=== PATIENT | female | born 1995 | race African-American/Black ===

== ENCOUNTER → 2019-09-02 15:54 | Outpatient (CLI) | payer OTHER, SELFPAY ==
--- NOTE | ~2019-09-02 | US_ITS ---
EXAMINATION: US OB transvaginal DATE: 09/02/2019 16:17 INDICATION: Follow-up pole. Evaluate viability. TECHNIQUE: Real-time transvaginal obstetric ultrasound. FINDINGS: Comparison ultrasound dated 08/26/2019 The uterus measures 10.3 x 5.9 x 7.1 cm. There is an intrauterine gestational sac, with pole id entified. The crown rump length measures 0.7 cm, which correlates with a estimated gestational age o f 6 weeks 2 days. heart tones are identified measuring 133 BPM. There is a 4.1 cm corpus lute al cyst of the right ovary. Left ovary not visualized. Small amount of free fluid in the pelvis. IMPRESSION: 1. SL IUP with an EGA of 6 weeks, 4 days (EDC by current ultrasound of 04/23/2020). 2: 4.1 cm corpus luteal cyst of the right ovary. Reviewed, dictated and finalized at location A. ATRIC SPEECH THERAPIST IMPRESSION: 1. SL IUP with an EGA of 6 weeks, 4 days (EDC by current ultrasound of 0). 2: 4.1 cm corpus luteal cyst of the right ovary.
== END ==
PROVIDERS: Visit Provider Obstetrics & Gynecology
DX: O36.80X0 Pregnancy with inconclusive fetal viability, not applicable or unspecified (principal); N83.201 Unspecified ovarian cyst, right side; Z3A.01 Less than 8 weeks gestation of pregnancy
CPT/HCPCS: 76817

== ENCOUNTER 2019-11-21 10:58 | Outpatient (CLI) | payer OTHER, SELFPAY ==
--- NOTE | ~2019-11-21 | US_ITS ---
EXAMINATION: US OB /maternal detail DATE: 11/21/2019 11:55 INDICATION: Second trimester anatomic survey TECHNIQUE: Real-time ultrasound of the pelvis was performed. COMPARISON: None. FINDINGS: There is a single living fetus in vertex presentation. The placenta is anterior. heart rate is 159 beats per minute (bpm). cardiac activity and movement are noted. The amniotic fluid index is subjectively normal. The four chamber heart is not well demonstrated. The following anatomy was identified as normal : 3 vessel cord cord insertion kidneys urinary bladder stomach spine diaphragm ventricles cisterna magna cerebellum The following biometric data were obtained: Biparietal diameter (BPD): 4.1 cm; head circumference (HC): 15.7 cm; abdominal circumference (AC): 12 .7 cm; femur length (FL): 2.6 cm. These measurements are concordant. Estimated weight is 231 g +/- 34 g, which correlates with the 62nd percentile when 04/23/2020 is used as estimated date of delivery. As single measurements, these parameters are each equal to the following estimated gestational ages w ith ranges of +/- 2 standard deviations: BPD: 18 weeks 4 days +/- 1 weeks 5 days. HC: 18 weeks 5 days +/- 1 weeks 3 days. AC: 18 weeks 2 days +/- 2 weeks 0 days. FL: 18 weeks 0 days +/- 1 weeks 3 days. estimated gestational age based solely on measurements from this exam is 18 weeks 3 days +/- 1 weeks 2 days. IMPRESSION: 1. Single living fetus in vertex presentation. 2. Estimated weight is 231 g +/- 34 g, which correlates with the 62nd percentile when 04/23/2020 is used as estimated date of delivery. 3. Four chamber heart not well demonstrated. Reviewed, dictated and finalized at location A. IMPRESSION: 1. Single living fetus in vertex presentation. 2. Estimated weight is 231 g +/- 34 g, which correlates with the 62nd per centile when 04/23/2020 is used as estimated date of delivery. 3. Four chamber heart not well demonstrated.
== END 2019-11-21 10:59 | disposition home or self-care (01) ==
LOC: ANHIMG 11:06
PROVIDERS: Visit Provider Obstetrics & Gynecology
DX: Z34.00 Encounter for supervision of normal first pregnancy, unspecified trimester (principal)
CPT/HCPCS: 76805

== ENCOUNTER 2019-11-27 10:00 | Outpatient (CLI) | payer OTHER, SELFPAY ==
--- NOTE | ~2019-11-27 | US_ITS ---
EXAMINATION: US OB limited DATE: 11/27/2019 10:37 INDICATION: Nonvisualized cardiac anatomy on prior survey during second trimester . TECHNIQUE: Real-time ultrasound of the pelvis was performed. The interpreting radiologist was not pre sent for the study. COMPARISON: 11/21/2019 FINDINGS: There is a single living fetus in transverse lie with vertex to maternal right. The placenta is ante rior with caudal margin 3.6 cm from the internal cervical os. Normal cervical length of 4.1 cm. heart rate is 152 beats per minute (bpm). The amniotic fluid is subjectively normal. Normal he art. IMPRESSION: 1. Single living fetus in vertex presentation with heart rate of 152 bpm. 2. Normal heart. Reviewed, dictated and finalized at location A. IMPRESSION: 1. Single living fetus in vertex presentation with heart rate of 152 bpm . 2. Normal heart.
== END 2019-11-27 10:01 | disposition home or self-care (01) ==
LOC: ANHIMG 10:07
PROVIDERS: Visit Provider Obstetrics & Gynecology
DX: Z36.2 Encounter for other antenatal screening follow-up (principal)
CPT/HCPCS: 76815

== ENCOUNTER 2020-04-17 22:55 | Observation (INO) | payer OTHER, SELFPAY ==
--- NOTE | 2020-04-17 22:55 | OBADM ---
This patient, Yojana Francois, admitted to the OB room Labor/Delivery/Recovery 106 for observation. Patient/family oriented to hospital policies and general routines including ID bracelet, bed and alarms, visiting hours, pain management, procedures, bathroom and other care routines, personal items, smoking policy, room service/diet, and visiting hours. Patient/Family are encouraged to report perceived risks to care and to ask questions if they do not understand what they are told or what they should do.
[2020-04-17 23:09] VITALS: RESP 16
[2020-04-17 23:17] VITALS: TEMP 36.4
--- NOTE | 2020-05-04 09:56 | PM.OBTRLD ---
OB - Triage/Final Diagnosis Final Diagnosis (1) False labor: Code(s): O47.9 - False labor, unspecified Status: Acute
== END 2020-04-18 00:39 | disposition home or self-care (01) ==
PROVIDERS: Admitting Provider Obstetrics & Gynecology Gynecology; Visit Provider Obstetrics & Gynecology Gynecology
DX: O47.9 False labor, unspecified (principal); Z3A.00 Weeks of gestation of pregnancy not specified
CPT/HCPCS: G0378; G0379

== ENCOUNTER 2020-04-18 19:55 | Inpatient (IN) | payer OTHER, SELFPAY ==
[2020-04-18] VITALS (29 sets, daily range): BP systolic 72–149; BP diastolic 26–112; PULSE 82–221; TEMP 36.3–37.3; O2SAT 100; BMI 28.4
[2020-04-18] MEDS: LACTATED RINGERS 1,000 ML 125 ML IV CONT ×2 (20:16→21:17)
[2020-04-18 20:36] LABS: Basophils Percent Auto 0.3 % (0.2-1.2); Eosinophils Absolute Auto 0.1 K/mm3 (0-0.3); Eosinophils Percent Auto 0.6 % (0-4.4); Hematocrit 38.9 % (37.0-47.0); Hemoglobin 12.8 g/dL (12.0-15.0); Immature Granulocyte Absolute 0.09 K/mm3 (0.00-0.031); Immature Granulocyte Percent A 0.7 % (0-0.5); Lymphocytes Absolute Auto 3.66 K/mm3 (0.9-3.2); Lymphocytes Percent Auto 29.1 % (18.3-44.2); Mean Corpuscular HGB Conc 32.9 g/dl (32-36); Mean Corpuscular Hemoglobin 28.1 pg (26-34); Mean Corpuscular Volume 85.5 fl (80-100); Mean Platelet Volume 11.3 fl (7.4-10.4); Monocytes Absolute Auto 1.1 K/mm3 (0.1-0.6); Monocytes Percent Auto 8.4 % (2.6-8.5); Neutrophils Absolute Auto 7.7 K/mm3 (1.3-6.7); Neutrophils Percent Auto 60.9 % (45.5-73.1); Platelet Count Result 192 k/mm3 (150-375); Red Blood Count 4.55 M/mm3 (4.2-5.4); Red Cell Distribution Width 16.7 % (11.5-14.5); White Blood Count 12.6 K/mm3 (4.5-10.0)
--- NOTE | 2020-04-18 20:36 | LDADM ---
This patient, Yojana Francois, was admitted to Labor/Delivery/Recovery 106 on 04/18/20 at 19:55. Plans for labor, pain management and were discussed with patient. Patient/family oriented to hospital policies and general routines including ID bracelet, bed and alarms, visiting hours, pain management, procedures, bathroom and other care routines, personal items, smoking policy, room service/diet and guest tray routines, infant security routines, and visiting hours. Patient/Family are encouraged to report perceived risks to care and to ask questions if they do not understand what they are told or what they should do. See OBIX for further documentation.
--- NOTE | 2020-04-18 20:52 | WPDANESEPP ---
Anes - Eval Pre Procedure Procedure: Labor epidural Date/Time: 04/18/20 20:52 Surgeon: scott Preop Diagnosis: Abd pain with contractions Pre Op Diagnosis: Contractions Patient Data Age: 24 Gender: F Height: 5 ft 6 in Weight: 80 kg Last Vital Signs Pulse 96 04/18/20 20:45 BP 128/70 04/18/20 20:45 Pulse Ox 100 04/18/20 20:50 Allergies Allergy/AdvReac Type Severity Reaction Status Date / Time AMOXICILLIN TRIHYDRATE Allergy Mild Rash Uncoded 03/23/20 14:30 POTASSIUM CLAVULANATE Allergy Mild Rash Uncoded 03/23/20 14:30 Home Medications Medication Instructions Recorded Confirmed Type PNV cmb#95-ferrous fumarate-FA 1 tablet PO DAILY 03/23/20 03/23/20 History [] docusate sodium [Colace] 100 mg PO DAILY 03/23/20 03/23/20 History ergocalciferol (vitamin D2) 1,250 mcg PO 2XW 03/23/20 03/23/20 History [Vitamin D2] ferrous sulfate 325 mg PO DAILY 03/23/20 03/23/20 History Laboratory Tests 04/18/20 04/18/20 04/18/20 20:31 20:31 20:31 WBC 12.6 K/mm3 H K/mm3 (4.5-10.0) RBC 4.55 M/mm3 M/mm3 (4.2-5.4) Hgb 12.8 g/dL g/dL (12.0-15.0) Hct 38.9 % % (37.0-47.0) MCV 85.5 fl fl (80-100) MCH 28.1 pg pg (26-34) MCHC 32.9 g/dl g/dl (32-36) RDW 16.7 % H % (11.5-14.5) Plt Count 192 k/mm3 k/mm3 (150-375) MPV 11.3 fl H fl (7.4-10.4) Immature Gran % (Auto) 0.7 % H % (0-0.5) Neut % (Auto) 60.9 % % (45.5-73.1) Lymph % (Auto) 29.1 % % (18.3-44.2) [place] % (Auto) 8.4 % % (2.6-8.5) Eos % (Auto) 0.6 % % (0-4.4) Baso % (Auto) 0.3 % % (0.2-1.2) Lymph # (Auto) 3.66 K/mm3 H K/mm3 (0.9-3.2) [place] # (Auto) 1.1 K/mm3 H K/mm3 (0.1-0.6) Eos # (Auto) 0.1 K/mm3 K/mm3 (0-0.3) Baso # (Auto) 0.0 K/mm3 K/mm3 (0.0-0.1) Abs Immat Gran (auto) 0.09 K/mm3 H K/mm3 (0.00-0.031) Absolute Neuts (auto) 7.7 K/mm3 H K/mm3 (1.3-6.7) Absolute Nucleated RBC 0.0 K/mm3 K/mm3 (0.0-0.012) Nucleated RBC % 0.0 % % (0.0-0.2) RPR Pending Blood Type Pending Antibody Screen Pending Patient hx anesthesia problems: none Family hx anesthesia problems: none [facility] Past Medical History Medical History (Updated 04/18/20 @ 20:53 by Timothy Lizarraga CRNA) 20 or more weeks gestation of Anemia Eczema Overweight with body mass index (BMI) 25.0-29.9 Family History Family History Mother Diabetes mellitus Hypertension Grandparent Diabetes mellitus Hypertension Father Anal polyp Grandparent Diabetes mellitus Social History Social History Smoking status: Never smoker Substance use: never Spiritual care concerns: No Exam Day of Procedure 04/18/20 20:52 Patient weight: normal Neurological: alert and oriented
[2020-04-18] MEDS: OXYTOCIN 30 UNITS/NS 500 ML 30 UNITS/500 ML BAG 999 UNITS IV CONT (23:50)
[2020-04-19] VITALS (7 sets, daily range): BP systolic 99–128; BP diastolic 45–76; PULSE 82–105; RESP 16–18; TEMP 36.3–36.9; O2SAT 98–100
--- NOTE | 2020-04-19 00:02 | WPDOBADMIT ---
Obstetrics - Admit Note Admission Note: record reviewed. No pertinent additions to the history and/or any subsequent changes in the physical findings that are not consistent with the expected course of the were found. Additions to the history and/or subsequent changes in the physical findings follow. None.Here in labor.
--- NOTE | 2020-04-19 00:02 | PM.OBPRVD ---
OB - Delivery Note Procedure Delivery date: 04/18/20 Procedure: Intrapartal events: None Induction method: none Delivery monitor: external FHT and external uterine Route of delivery: Laceration description: Perineal - 2nd Degree (at 9:00 extending up into R periurethral) Delivery repair: vicryl (3-0) Specimen: No Estimated blood loss (mL): 100 Anesthesia type: Epidural Disposition: PACU [place] Baby Date of : 04/18/20 Weeks of gestation at delivery: 39 Infant gender: Male Weight (pounds): 7 Weight (ounces): 12 presentation: vertex Placenta delivery description: Spontaneous cord vessel description: 3 Vessels and Nuchal Cord (reduced) score one minute: 9 score five minutes: 9
--- NOTE | 2020-04-19 00:04 | P.DS_ITS ---
DS: Admitting Diagnosis Admitting Diagnosis Admitting Diagnosis: Contractions active labor at 39 wk DS: Discharge Diagnosis Discharge Diagnosis (1) (normal spontaneous vaginal delivery): Code(s): O80 - Encounter for full-term uncomplicated delivery Status: Acute OB - DS: Summary OB Procedures : Ultrasound OB Procedures Intrapartum: Spontaneous Vag Delivery OB Procedures: : None Peripartum Data Infant Delivery Method: Natural Vaginal Laceration description: Perineal - 2nd Degree (@ 9:00 extending into R periurethral) complications: none Status at Discharge Functional status at discharge: independent ambulation Overall status at discharge: patient is progressing back to baseline Time Spent with Patient Time attestation: Total time spent providing and/or coordinating discharge services: DS: Data Data Completed and Pending Labs on day of discharge: Labs from last 24 hours 04/18/20 04/18/20 04/18/20 20:31 20:31 20:31 WBC 12.6 H RBC 4.55 Hgb 12.8 Hct 38.9 MCV 85.5 MCH 28.1 MCHC 32.9 RDW 16.7 H Plt Count 192 MPV 11.3 H Immature Gran % (Auto) 0.7 H Neut % (Auto) 60.9 Lymph % (Auto) 29.1 [place] % (Auto) 8.4 Eos % (Auto) 0.6 Baso % (Auto) 0.3 Lymph # (Auto) 3.66 H [place] # (Auto) 1.1 H Eos # (Auto) 0.1 Baso # (Auto) 0.0 Abs Immat Gran (auto) 0.09 H Absolute Neuts (auto) 7.7 H Absolute Nucleated RBC 0.0 Nucleated RBC % 0.0 RPR Pending Blood Type O Positive Antibody Screen Negative Discharge Plan Discharge Attending physician on discharge: Kat Smith Consulting providers: Paramjit Thopmson Discharging Clinician: Kat Smith Anticipated Discharge Date/Time: 04/20/20 00:05 Patient Disposition: Home, Self-Care Activity: pelvic rest Diet: regular Patient Instructions: Antibiotic Form Stand Alone Forms: General Discharge Information Follow-up/Referrals: Christiano Deluca MD [Physician] - 6 Weeks Discharge Medications: Continued ergocalciferol (vitamin D2) [Vitamin D2] 1,250 mcg (50,000 unit) Capsule 1,250 mcg PO 2XW RF: 0 PNV cmb#95-ferrous fumarate-FA [] 28 mg iron- 800 mcg Tablet 1 tablet PO DAILY RF: 0 No Action ferrous sulfate 325 mg (65 mg iron) Tablet 325 mg PO DAILY RF: 0 docusate sodium [Colace] 100 mg Capsule 100 mg PO DAILY RF: 0 Date of admission: 04/18/20 19:55 Primary Care Provider: PHYSICIAN,CALL CENTER COORDINATOR Admitting Provider: Christiano Deluca Attending physician on admission: Christiano Deluca Condition: Stable Health Concerns: DepoProvera given at [facility]
[2020-04-19] MEDS: OXYTOCIN 30 UNITS/NS 500 ML 30 UNITS/500 ML BAG 125 UNITS IV CONT (00:23)
[2020-04-19] MEDS: WITCH HAZEL 40 PADS 1 PAD TOPICAL (00:53)
[2020-04-19] MEDS: BENZOCAINE 20% AER SPR (*SP) 56 GM CAN 1 SPRAY TOPICAL (00:53)
--- NOTE | 2020-04-19 02:07 | OBPPTRN ---
Patient transferred to post room #290 via wheelchair. Support person present. Oriented to unit, room, information board, rooming in, admission packet and security measures. Patient verbalizes understanding. with patient.
[2020-04-19] MEDS: IBUPROFEN 600 MG TABLET PO ×2 (06:37→17:16)
--- NOTE | 2020-04-19 06:43 | PC.NURSE ---
This RN requested into room by pt. Pt states that hasnt feed since 299. While in room infant started spitting up clear liquid. This RN showed mom had to hold and suction infant.
--- NOTE | 2020-04-19 09:16 | P.PNOB_ITS ---
OB - PN: Subj Subjective Date/time seen: 04/19/20 09:16 Patient comments: no complaints and pain well controlled baby status: doing well and nursing well OB - PN: Obj Data Labs CBC & Chem 7: 04/18/20 20:31 Labs: Laboratory Results - last 24 hr 04/18/20 04/18/20 20:31 20:31 WBC 12.6 H RBC 4.55 Hgb 12.8 Hct 38.9 MCV 85.5 MCH 28.1 MCHC 32.9 RDW 16.7 H Plt Count 192 MPV 11.3 H Immature Gran % (Auto) 0.7 H Neut % (Auto) 60.9 Lymph % (Auto) 29.1 [place] % (Auto) 8.4 Eos % (Auto) 0.6 Baso % (Auto) 0.3 Lymph # (Auto) 3.66 H [place] # (Auto) 1.1 H Eos # (Auto) 0.1 Baso # (Auto) 0.0 Abs Immat Gran (auto) 0.09 H Absolute Neuts (auto) 7.7 H Absolute Nucleated RBC 0.0 Nucleated RBC % 0.0 Blood Type O Positive Antibody Screen Negative OB - PN A/P Plan day: 1 Plan: routine care Time Spent With Patient Time: Total time spent is greater than 50% in coordination of care (as documented) at patient's floor/unit and/or counseling patient: Exam : Bimanual exam- vagina & uterus: other (Uterus firm, nt @U)
[2020-04-20] MEDS: IBUPROFEN 600 MG TABLET PO (05:14)
[2020-04-20 05:25] LABS: Hemoglobin 10.6 g/dL (12.0-15.0)
[2020-04-20] MEDS: BENZOCAINE 20% AER SPR (*SP) 56 GM CAN 1 SPRAY TOPICAL (06:58)
[2020-04-20] MEDS: WITCH HAZEL 40 PADS 1 PAD TOPICAL (06:58)
[2020-04-20] MEDS: DOCUSATE SODIUM 100 MG CAPSULE PO (06:58)
[2020-04-20 07:19] LABS: Rapid Plasma Reagin Non-Reactive (NonReactive)
[2020-04-20] MEDS: MULTIVIT/MIN/PREN/FOL AC/IRON TABLET 1 TAB PO (07:22)
--- NOTE | 2020-04-20 08:14 | PM.OBPNVD ---
OB - PN: Subj Subjective Date/time seen: 04/20/20 08:14 Patient comments: no complaints and pain well controlled baby status: doing well OB - PN: Obj Data Labs CBC & Chem 7: 04/20/20 05:06 Labs: Laboratory Results - last 24 hr 04/18/20 04/20/20 20:31 05:06 Hgb 10.6 L Hct 32.0 L RPR Non-reactive OB - PN A/P Plan day: 2 Plan: routine care, discharge home, follow up 6 weeks and other Comments: plans Depo Provera then Mirena Time Spent With Patient Time: Total time spent is greater than 50% in coordination of care (as documented) at patient's floor/unit and/or counseling patient: Exam : Bimanual exam- vagina & uterus: other (Uterus firm, nt @U)
[2020-04-20 08:15] VITALS: BP 117/75; PULSE 82; RESP 18; TEMP 36.4; O2SAT 99
[2020-04-20] MEDS: medroxyPROGESTERone ACETATE IM 150 MG/ML SYR IM (11:12)
[2020-04-22 09:57] VITALS: BP 123/78; PULSE 97; RESP 16; TEMP 36.6; O2SAT 100
== END 2020-04-20 12:24 | disposition home or self-care (01) | DRG 807 ==
LOC: ANHLDR 04-19 00:05 → ANHOB2 04-20 10:18 → ANHLDR 04-20 16:51 → ANHOB2 04-20 16:51
PROVIDERS: Admitting Provider Obstetrics & Gynecology Gynecology; Visit Provider Obstetrics & Gynecology Gynecology
DX: O69.81X0 Labor and delivery complicated by cord around neck, without compression, not applicable or unspecified (principal); Z37.0 Single live birth; Z3A.39 39 weeks gestation of pregnancy; O70.1 Second degree perineal laceration during delivery; O36.8330 Maternal care for abnormalities of the fetal heart rate or rhythm, third trimester, not applicable or unspecified; O99.72 Diseases of the skin and subcutaneous tissue complicating childbirth; L30.9 Dermatitis, unspecified; O99.02 Anemia complicating childbirth; D64.9 Anemia, unspecified
CPT/HCPCS: 36415; 85014; 85018; 85025; 86592; 86850; 86900; 86901; A9270; J1050; J2590; J2795; J7120